=== PATIENT | female | born 1980 | race Caucasian/White ===

== ENCOUNTER → 2017-09-13 15:28 | Outpatient (CLI) | payer OTHER, SELFPAY ==
[2017-09-13 15:28] VITALS: BP 124/87; BMI 38.6
[2017-09-13 17:03] LABS: Absolute Lymphocyte Count 1.51 X10^3/ul (0.83-4.51); Absolute Neutrophil Count 5.9 X10^3/uL (2.0-7.7); Basophil# 0.01 X10^3/uL; Basophil% 0.1 % (0-1); Eosinophil# 0.05 X10^3/uL; Eosinophils% 0.6 % (0-5); Hematocrit 34.6 % (37-47); Hemoglobin 11.7 g/dl (12.0-15.0); Lymphocyte # 1.51 X10^3/ul (4.0); Lymphocyte % 18.9 % (19-41); Mean Corp Hgb Conc 33.8 g/gl (32-36); Mean Corpuscular Hgb 28.1 pg (27.0-32.0); Mean Corpuscular Volume 83.2 fL (81-99); Mean Platelet Vol. 9.8 fl (6.2-12.0); Monocyte# 0.52 X10^3/uL; Monocyte% 6.5 % (0-10); Neutrophil # 5.89 X10^3/uL (2.7-7.7); Neutrophil % 73.6 % (47-70); Platelet Count 213 K/mm3 (150-450); RBC Distribution Width CV 15.7 % (11.6-14.6); RBC Distribution Width SD 46.6 fl (35.1-43.9); Red Blood Count 4.16 M/mm3 (4.2-5.4)
[2017-09-13 17:05] LABS: POSITIVE COUNT NO; POSITIVE DIFFERENTIAL NO; POSITIVE MORPHOLOGY NO
== END ==
PROVIDERS: Family Provider Nurse Practitioner; PCP Nurse Practitioner; Visit Provider Obstetrics & Gynecology
DX: O24.414 Gestational diabetes mellitus in pregnancy, insulin controlled (principal); Z3A.00 Weeks of gestation of pregnancy not specified
CPT/HCPCS: 36415; 85025; 86850; 86900

== ENCOUNTER → 2017-10-02 16:30 | Outpatient (CLI) | payer OTHER, SELFPAY ==
[2017-10-02 17:19] LABS: Hemoglobin A1c 4.9 % (4.2-6.3)
[2017-10-02 17:23] LABS: Free T3 2.8 pg/mL (2.18-3.98); T4 Free Direct 0.75 ng/dL (0.76-1.46); Thyroid Stim Hormone (TSH) 2.31 uIU/mL (0.358-3.74)
[2017-10-06 08:30] LABS: PARVOVIRUS B19 IGG 7.4 index (0.0-0.8); PARVOVIRUS B19 IGM 0.2 index (0.0-0.8)
== END ==
PROVIDERS: Nurse Practitioner; Family Provider Nurse Practitioner; PCP Nurse Practitioner; Visit Provider Obstetrics & Gynecology
DX: O24.419 Gestational diabetes mellitus in pregnancy, unspecified control (principal); Z3A.00 Weeks of gestation of pregnancy not specified
CPT/HCPCS: 83036; 84439; 84443; 84481; 86747

== ENCOUNTER → 2017-10-05 12:29 | Outpatient (CLI) | payer OTHER, SELFPAY ==
--- NOTE | 2017-10-05 12:31 | US_ITS ---
STUDY: SECOND AND THIRD TRIMESTER OBSTETRICAL ULTRASOUND - LIMITED REASON FOR EXAM: Female, 37 years old. Routine survey. LMP: March 01, 2017. PRIOR ULTRASOUND: None. TECHNIQUE: Transabdominal ultrasound evaluation was performed. FINDINGS: There is a single intrauterine fetus. The fetus is in a footling breech presentation. There is demonstrated cardiac activity with a heart rate of 144 bpm. There is a normal amniotic fluid volume. The largest amniotic fluid pocket measures 8.8 cm x 6.6 cm. The amniotic fluid index (OLE) is 12.5 cm. The placenta is anterior in location and is not low lying. There are Grade 0 placental changes. The cervix measures 3.7 cm in length. BIOMETRY: BPD: 7.73 cm: 31 weeks, 1 days HC: 29.54 cm: 32 weeks, 5 days AC: 28.26 cm: 32 weeks, 3 days FL: 6.28 cm: 30 weeks, 4 days Age by LMP: 31 weeks, 1 days. JAIME by LMP: December 06, 2017. age by current US: 32 weeks, 2 days. JAIME by current US: November 28, 2017. Estimated weight: 1940 grams, +/- 23 grams, 76 percentile. Gender: Indeterminant US/OB Limited With Biometrics IMPRESSION: Single live intrauterine gestation with a mean gestational age of 32 weeks and 2 days. Electronically Signed: Nathan Nam MD at 14:32 EST Tel [phone], Service support ,
== END ==
PROVIDERS: Family Provider Nurse Practitioner; PCP Nurse Practitioner; Visit Provider Obstetrics & Gynecology
DX: O24.414 Gestational diabetes mellitus in pregnancy, insulin controlled (principal); O32.8XX0 Maternal care for other malpresentation of fetus, not applicable or unspecified; Z3A.32 32 weeks gestation of pregnancy
CPT/HCPCS: 76816

== ENCOUNTER → 2017-11-06 15:02 | Outpatient (CLI) | payer OTHER, SELFPAY ==
--- NOTE | 2017-11-06 15:04 | US_ITS ---
STUDY: SECOND AND THIRD TRIMESTER OBSTETRICAL ULTRASOUND - LIMITED REASON FOR EXAM: Female, 37 years old. Growth. Gestational diabetes LMP: 03/01/2017 PRIOR ULTRASOUND: 10/05/2017 TECHNIQUE: Transabdominal ultrasound evaluation was performed. FINDINGS: There is a single intrauterine fetus. The fetus is in a cephalic presentation. There is demonstrated cardiac activity with a heart rate of 143 bpm. There is a normal amniotic fluid volume. The largest amniotic fluid pocket measures 6.9 x 4.8 cm. The amniotic fluid index (OLE) is 10.3 cm. The placenta is anterior in location and is not low lying. There are Grade 1 placental changes. The cervix is obscured. BIOMETRY: BPD: 8.6 cm: 34 weeks, 4 days HC: 31.9 cm: 36 weeks, 0 days AC: 33.2 cm: 37 weeks, 2 days FL: 7.1 cm: 36 weeks, 3 days Age by LMP: 35 weeks, 5 days. JAIME by LMP: 12/06/2017. age by prior US: 36 weeks, 6 days. JAIME by prior US: 11/28/2017. age by current US: 36 weeks, 1 days. JAIME by current US: 12/03/2017. Estimated weight: 2954 grams, +/- 431 grams, 72 percentile. Gender: Indeterminant US/OB Limited With Biometrics IMPRESSION: 1. Single live intrauterine in vertex presentation 36 week 1 day gestation with an JAIME of 12/03/2017 and gestational age by prior ultrasound and LMP as above. 2. Anterior grade 1 placenta, not low lying. 3. Amniotic fluid index 10.3 cm. 4. Estimated weight 2954 g or 72 percentile. 5. Cervix is obscured. Electronically Signed: Marika Stoddard MD at 5:07 EDT , Service support ,
== END ==
PROVIDERS: Family Provider Nurse Practitioner; PCP Nurse Practitioner; Visit Provider Obstetrics & Gynecology
DX: O24.414 Gestational diabetes mellitus in pregnancy, insulin controlled (principal); Z3A.00 Weeks of gestation of pregnancy not specified
CPT/HCPCS: 76816

== ENCOUNTER 2017-11-24 04:39 | Inpatient (IN) | payer OTHER, SELFPAY ==
[2017-11-24 05:38] VITALS: BMI 39.5
[2017-11-24 05:40] LABS: Hematocrit 36.1 % (37-47); Mean Corp Hgb Conc 33.2 g/gl (32-36); Mean Corpuscular Hgb 27.5 pg (27.0-32.0); Mean Corpuscular Volume 82.6 fL (81-99); Mean Platelet Vol. 9.4 fl (6.2-12.0); Platelet Count 160 K/mm3 (150-450); RBC Distribution Width CV 16.5 % (11.6-14.6); RBC Distribution Width SD 49.8 fl (35.1-43.9); Red Blood Count 4.37 M/mm3 (4.2-5.4); White Blood Count 7.7 K/mm3 (4.4-11.0)
[2017-11-24 05:46] LABS: Bedside Glucose 97 mg/dL (70-110)
[2017-11-24] MEDS: Lactated Ringers 1,000 ML 50 ML IV ×2 (06:00→07:28)
[2017-11-24 06:04] LABS: Scan Indicated on CBC? Y/N NO
--- NOTE | 2017-11-24 07:22 | HP.PCM_ITS ---
- Problem List (1) History of GBS (group B streptococcus) UTI, currently Status: Acute Comment: per patient, pcn in labor (2) Supervision of high-risk of elderly multigravida Status: Acute Comment: PRR JAIME 12/06/17 girl Kathryn Crews DAVON [facility] (3) Rh negative status during Status: Acute Qualifiers: Comment: rhogam prn and 28 weeks (4) Hypothyroidism Status: Acute Qualifiers: Comment: tsh q trimester (5) Insulin controlled gestational diabetes mellitus (GDM) in third trimester Status: Acute Comment: 28 U insulin at bedtime, sees endocrine, recommend weekly nsts at 32 weeks and growth US every 4 weeks, IOL 39 weeks History Date of Admission: 11/24/17 Final JAIME: 12/06/17 Gestational age: 38 Weeks and 2 Days History of this : 37 yo @ 38w3d presents IAL with clear SROM. she has had gestational diabetes controlled with insulin and diet. she dneies any vb, co ctx every 10 minutes Pertinent Past Medical History: Past Medical History (Last Reviewed 11/22/17 @ 14:20 by Karen Nicole) Gestational diabetes (Acute) Hypothyroid (Acute) Rh negative status during (Acute) Past Surgical History (Last Reviewed 11/22/17 @ 14:20 by Karen Nicole) H/O eye surgery (Acute) Mom's Labs & Results 11/24/17 11/24/17 11/24/17 05:22 05:30 05:30 WBC 7.7 RBC 4.37 Hgb 12.0 Hct 36.1 L MCV 82.6 MCH 27.5 MCHC 33.2 RDW 16.5 H RDW Differential 49.8 H Plt Count 160 MPV 9.4 POC Glucose 97 Blood Type O NEGATIVE Antibody Screen NEGATIVE Course Did the patient receive Yes care? Labs Blood Type: O RH: NEGATIVE RPR/VDRL/Syphilis Nonreactive Rubella status Immune HbSAg Negative Date Done: 06/15/17 Chlamydia Negative Gonorrhea Negative HIV/AIDS Non-Reactive Group B Strep: Positive Current Obstetrical History Gestational Diabetes Yes Incompetent Cervix No Infertility No IUGR No Macrosomia No Hypertension/Pre-eclampsia No Placenta Previa/Abruption No PTL/PROM No Uterine anomaly No Oligohydramnios No Polyhydramnios No Multiple gestation No Past Medical History Asthma No Diabetes No Hypertension No Heart disease No Mitral valve prolapse No Neurologic/Seizure disorder/ No Migraines Kidney disease No Liver disease No Varicosities No Clotting disorders/Hx of DVT No Thyroid Dysfunction Yes: hypothyroidism Other medical diseases No Psychiatric disorders No Major trauma No Abnormal PAP smear No Sleep apnea No Mammogram in the last 2 years No Social History Marital Status: Alleged father Michael Hx Smoking No Smoking Status Never smoker All Active Problems (Last Reviewed 11/22/17 @ 14:20 by Karen Nicole) History of GBS (group B streptococcus) UTI, currently (Acute) Supervision of high-risk of elderly multigravida (Acute) Rh negative status during (Acute) Hypothyroidism (Acute) Insulin controlled gestational diabetes mellitus (GDM) in third trimester (Acute ) Allergies No Known Allergies Allergy (Verified 11/24/17 05:41) Current Medications Acetaminophen (Tylenol) 325 - 650 mg PO Q4H PRN PRN PRN Reason: PAIN OR FEVER >100.4F Al Hydroxide/Mg Hydroxide (Mylanta Ii) 15 - 30 ml PO Q4H PRN PRN PRN Reason: INDIGESTION Citric Acid/Sodium Citrate (Bicitra) 30 ml PO UD PRN Penicillin G Potassium/Dextrose (Penicillin G Potassium) 3 mu in 50 mls @ 100 mls/hr IV Q4H MELITA Lactated Ringer's () 1,000 mls @ 50 mls/hr IV .Q20H MELITA Nalbuphine HCl (Nubain) 5 - 10 mg IV Q3H PRN PRN PRN Reason: PAIN (4-10/10) Ondansetron HCl (Zofran) 4 mg IV Q8H PRN PRN PRN Reason: NAUSEA Promethazine HCl (Phenergan) 6.25 - 12.5 mg IV Q4H PRN PRN; Protocol PRN Reason: IF NAUSEA PERSISTS Sodium Chloride () 5 - 15 ml IV UD MELITA Number of Fetus(es): 1 - fht 140-150 moderate variability reactive no decels, cat I tracing toco q 8-10 Review of Systems Constitutional: Denies: Chills, Fever, Weight Change HEENT: Denies: Head Aches, Sinus Congestion, Sinus Drainage Cardiovascular: Denies: Chest Pain, Palpitations Respiratory: Denies: Cough, Shortness of breath at rest, Sputum production Gastrointestinal: Reports: Abdominal Pain. Denies: Nausea, Vomiting Genitourinary: Denies: Dysuria Gynecological: Reports: Vaginal discharge. Denies: Vaginal bleeding Musculoskeletal: Denies: Joint Pain, Joint Tenderness Skin: Denies: Rash, Wounds Neurological: Denies: Numbness, Tingling, Focal weakness Psychiatric: Denies: Anxiety, Depression, Homicidal Ideations, Suicidal Ideations Hematologic/ Lymphatic: Denies: Easy Bruising, Easy Bleeding Physical Exam General: Alert Cardiovascular: Regular rate Lungs: Normal air movement Abdomen: Soft, Non Tender, Gravid Extremities:: No edema Estimated gestational size: Appropriate for gestational size Presentation: Cephalic Cervix Dilation (cm): 4 Station: -2 Effacement (%): 60 Assessment/Plan 37 yo @ 38w3d presents IAL srom clear fluid 1. GDMA2- check blood sugars q1 hour in labor 2. srom clear fluid 3. gbs pos give pcn 4. epi PRN 5. AMA
[2017-11-24 07:31] LABS: Bedside Glucose 94 mg/dL (70-110)
[2017-11-24 07:51] LABS: ALB/GLOB Ratio 0.7 RATIO (0.9-2.4); AST(SGOT) 14 U/L (15-37); Alanine Aminotransfer ALT/SGPT 15 U/L (13-56); Albumin, Serum 2.6 g/dL (3.2-5.0); Alkaline Phosphatase 113 U/L (45-117); Anion Gap 10 (5-15); BUN 6 mg/dL (7-18); BUN/Creat Ratio 10.1 RATIO (10-20); Calcium,Total 8.8 mg/dL (8.5-10.1); Chloride 110 mmol/L (98-107); Creatinine, Serum 0.59 mg/dL (0.55-1.02); EST Glomerular Filtration Rate 120 mL/min (>60); Est Glom Filt Rate - Afr Amer 145 mL/min (>60); Estimated Creatinine Clearance 102.25 ml/min; Globulin 3.8 g/dL (2.2-4.2); Glucose 90 mg/dL (74-106); Potassium 3.8 mmol/L (3.5-5.1); Protein, Total 6.4 g/dL (6.4-8.2); Sodium Level 142 mmol/L (136-145)
[2017-11-24] MEDS: Oxytocin 30 units/NS 500 ml 30 UNITS/500 ML IV.SOLN IV (09:22)
[2017-11-24 10:06] LABS: Bedside Glucose 73 mg/dL (70-110)
[2017-11-24] MEDS: Oxytocin 30 units/NS 500 ml 30 UNITS/500 ML IV.SOLN 334 UNITS IV (11:25)
--- NOTE | 2017-11-24 11:34 | PCM.OB.VAG ---
- Problem List (1) History of GBS (group B streptococcus) UTI, currently Status: Acute Comment: per patient, pcn in labor (2) Supervision of high-risk of elderly multigravida Status: Acute Comment: PRR JAIME 12/06/17 [facility] (3) Rh negative status during Status: Acute Qualifiers: Comment: rhogam prn and 28 weeks (4) Hypothyroidism Status: Acute Qualifiers: Comment: tsh q trimester (5) Insulin controlled gestational diabetes mellitus (GDM) in third trimester Status: Acute Comment: 28 U insulin at bedtime, sees endocrine, recommend weekly nsts at 32 weeks and growth US every 4 weeks, IOL 39 weeks Vaginal Delivery Maternal Presentation: Active Labor, Spontaneous Rupture of Membranes 38w2 d rpesents IAL SROM Medical Reason for Induction: - - diabetes Amniotic Membrane Rupture Type: Spontaneous at home Amniotic Fluid Description: Clear Final JAIME: 12/06/17 Gestational age: 38 Weeks and 2 Days Date of Procedure: 11/24/17 Pre-Operative Diagnosis: ial Post-Operative Diagnosis: same Surgery/ Procedure Performed: Spontaneous Vaginal Delivery Type of Anesthesia: Epidural Description of Procedure: Patient began pushing and delivered the head in the KAILA presentation. The head was delivered atraumatically . The anterior and posterior shoulders delivered without complication followed by the rest of the infant and the infant was placed on the maternal abdomen. Delayed cord clamping was employed for approximately 60 seconds. Cord was clamped and cut and gentle traction was applied to the cord and the placenta delivered spontaneously immediately following it was noted to be intact with three-vessel cord. The perineum and vagina were inspected and noted to have no laceration. EBL was 200 cc. Patient and tolerated delivery well. Presentation: KAILA Placental Delivery Description: Spontaneous Placenta Disposition: [facility] Cord Vessel Description: 3 Vessels Cord Entanglement: None Estimated Blood Loss: 200 Infant A gender: Female Episiotomy Description: None Laceration: None Medications given after delivery: IV Pitocin Complications: None
[2017-11-24] MEDS: Oxytocin 30 units/NS 500 ml 30 UNITS/500 ML IV.SOLN 167 UNITS IV (11:55)
[2017-11-24] MEDS: Naproxen 250 MG Tablet PO (13:05)
[2017-11-24 14:35] VITALS: BP 131/80; PULSE 91; RESP 18; TEMP 37
[2017-11-24] MEDS: Acetaminophen 500 MG Tablet 1000 MG PO (14:49)
[2017-11-24 17:45] VITALS: BP 105/72; PULSE 92; RESP 16; TEMP 36.8
[2017-11-24 19:40] VITALS: BP 105/78; PULSE 97; RESP 18; TEMP 36.7; O2SAT 100
[2017-11-25 00:35] VITALS: BP 107/83; PULSE 92; RESP 16; TEMP 36.9
[2017-11-25] MEDS: Acetaminophen 500 MG Tablet 1000 MG PO (00:37)
[2017-11-25 03:50] VITALS: BP 103/79; PULSE 89; RESP 16; TEMP 37.3
[2017-11-25] MEDS: Naproxen 250 MG Tablet PO (04:10)
[2017-11-25] MEDS: Thyroid 60 MG Tablet PO (06:25)
[2017-11-25 07:45] VITALS: BP 133/84; PULSE 87; RESP 18; TEMP 36.9; O2SAT 98
--- NOTE | 2017-11-25 10:59 | PCM.PN.OB ---
Subjective: doingw ell no complaints - Physical Exam General: Alert HEENT: EOMI Vital Signs Temp Pulse Resp BP Pulse Ox 98.4 F 87 18 133/84 H 98 11/25/17 07:45 11/25/17 07:45 11/25/17 07:45 11/25/17 07:45 11/25/17 07:45 Oxygen Delivery Method Room Air Weight: 216 lb 3.2 oz Body Mass Index (BMI) 39.5 Intake and Output for Last 24 Hours 11/23/17 11/24/17 11/25/17 23:59 23:59 23:59 Intake Total 2200 / 2200 Output Total 800 / 800 Balance 1400 / 1400 Medical Necessity - Tobacco Use Smoking Status: Never smoker Assessment/Plan s/p routine care diabetes- recommend checking BS at home and 2 hour GTT 6 weeks pp dc home
--- NOTE | 2017-11-25 11:09 | DCINST_ITS ---
Discharge Diet: No Restrictions Discharge Activity: Return to Normal Activity, May not drive while taking narcotic pain medications., May Shower May resume sexual activity in: 4-6 weeks Call your doctor if your incision/area has: Continuous Slow Oozing, Sudden Increased Bleeding, Increased Pain/ Swelling, Increased Redness, Foul Smelling Discharge Additional Instructions: If you experience any of the following, contact your healthcare provider. * Bleeding that soaks a pad every hour for 2 hours * Fever 100.4 or higher * Unrelieved incision or abdominal pain * Swelling, redness, discharge or bleeding from your incision or episiotomy site * Your incision begins to separate * Problems urinating (including inability to urinate or burning while urinating) . * Visual changes * Severe headache * Flu-like symptoms * Pain or redness in one of both of your breasts * Pain, warmth, tenderness or swelling in your legs, especially the calf area * Frequent nausea and vomiting * Symptoms of depression or anxiety If you experience any of the following, call 911 or go to the nearest Emergency Room. * Chest pain * Problems breathing * Seizure activity * Partial or complete paralysis of a body part, slurred speech, weakness or drooping of the face, or a sudden inability to walk or hold your balance Allergies/Adverse Reactions: Allergies No Known Allergies Allergy (Verified 11/24/17 05:41) Medications to take at Discharge docosahexanoic acid 200 mg capsule mg PO 08/31/17 insulin NPH isophane U-100 human 100 unit/mL (3 mL) subcutaneous pen 5 unit SC QPM #15 ml 09/12/17 thyroid (pork) 60 mg tablet 60 mg PO QDAY 10/25/17 Naproxen [Naprosyn] 250 - 500 mg PO Q8H PRN PRN #30 tab 11/25/17 The following prescriptions were given: Naproxen [Naprosyn] 250 - 500 mg PO Q8H PRN PRN #30 tab PRN Reason: MILD PAIN Orders to be completed after discharge: Electric breast pump Location: None Selected Please Follow Up With: Sarah Cam MD - [phone] When: Call to make an appointment with your doctor in 6 weeks. If you had elevated Blood pressure or 4th degree laceration you will need to be seen in 2 weeks. Primary Care Physician: Bush,Nuvia, PREPRINT ANALYST-C [Primary Care Provider] -
[2017-11-25 12:15] VITALS: BP 129/85; PULSE 98; RESP 16; TEMP 36.5; O2SAT 96
--- NOTE | 2017-11-25 15:36 | NURSING ---
1420 baby and mom discharged to home. baby in carseat and mom in wheelchair taken out to car accompanied by .
== END 2017-11-25 14:25 | disposition home or self-care (01) | DRG 775 ==
PROVIDERS: Admitting Provider Obstetrics & Gynecology; Family Provider Nurse Practitioner; PCP Nurse Practitioner; Visit Provider Obstetrics & Gynecology
DX: O24.424 Gestational diabetes mellitus in childbirth, insulin controlled (principal); O99.284 Endocrine, nutritional and metabolic diseases complicating childbirth; E03.9 Hypothyroidism, unspecified; Z37.0 Single live birth; Z3A.38 38 weeks gestation of pregnancy
CPT/HCPCS: 59025; 59050; 80053; 82962; 85027; 86850; 86900; 99218; J7120; G0378

== ENCOUNTER → 2018-11-21 | Outpatient (CLI) | payer OTHER, SELFPAY ==
[2018-10-08 18:04] VITALS: BMI 38.2
[2018-11-21 23:23] LABS: Thyroid Stim Hormone (TSH) 0.89 uIU/mL (0.358-3.74)
== END | disposition home or self-care (01) ==
PROVIDERS: Family Provider Nurse Practitioner; PCP Nurse Practitioner; Visit Provider Nurse Practitioner
DX: E03.9 Hypothyroidism, unspecified (principal)
CPT/HCPCS: 84443

== ENCOUNTER → 2019-09-29 14:26 | Outpatient (CLI) | payer OTHER, SELFPAY ==
[2018-11-29 15:39] VITALS: BMI 36.3
[2019-09-29 14:24] VITALS: BMI 36.3
--- NOTE | 2019-09-29 14:28 | US_ITS ---
STUDY: ULTRASOUND OF THE FEMALE PELVIS - COMPLETE REASON FOR EXAM: Female, 39 years old. Pelvic pain. TECHNIQUE: Transabdominal and Transvaginal TECHNICAL QUALITY: Adequate. COMPARISON: None. FINDINGS: The uterus is anteverted and is in a midline position. The uterus measures 7.7 x 5.9 x 4.9 cm. Normal uterine cervix. The endometrium measures 7 mm in thickness, and is hyperechoic. There is no demonstrated endometrial mass. There is no demonstrated myometrial mass. The right ovary is visualized. The right ovary measures 2.7 x 2.7 x 1.6 cm. There is no right ovarian cyst or ovarian mass. There is no visualized right adnexal mass or complex lesion. There is normal arterial and normal venous vascularity. The left ovary is visualized. The left ovary measures 1.9 x 1.4 x 1.3 cm. There is no left ovarian cyst or ovarian mass. There is no visualized left adnexal mass or complex lesion. There is normal arterial and normal venous vascularity. There is no fluid in the cul-de-sac. US/Transvaginal Non- IMPRESSION: Normal female pelvis. Electronically Signed: Kahlil Valenzuela, at 17:00 EST Tel , Service support ,
--- NOTE | 2019-09-29 14:28 | US_ITS ---
STUDY: ULTRASOUND OF THE FEMALE PELVIS - COMPLETE REASON FOR EXAM: Female, 39 years old. Pelvic pain. TECHNIQUE: Transabdominal and Transvaginal TECHNICAL QUALITY: Adequate. COMPARISON: None. FINDINGS: The uterus is anteverted and is in a midline position. The uterus measures 7.7 x 5.9 x 4.9 cm. Normal uterine cervix. The endometrium measures 7 mm in thickness, and is hyperechoic. There is no demonstrated endometrial mass. There is no demonstrated myometrial mass. The right ovary is visualized. The right ovary measures 2.7 x 2.7 x 1.6 cm. There is no right ovarian cyst or ovarian mass. There is no visualized right adnexal mass or complex lesion. There is normal arterial and normal venous vascularity. The left ovary is visualized. The left ovary measures 1.9 x 1.4 x 1.3 cm. There is no left ovarian cyst or ovarian mass. There is no visualized left adnexal mass or complex lesion. There is normal arterial and normal venous vascularity. There is no fluid in the cul-de-sac. US/Pelvic (Non ) IMPRESSION: Normal female pelvis. Electronically Signed: Kahlil Valenzuela, at 16:59 EST Tel , Service support ,
== END ==
PROVIDERS: PCP Nurse Practitioner; Referring Provider Obstetrics & Gynecology; Visit Provider Obstetrics & Gynecology
DX: R10.2 Pelvic and perineal pain (principal)
CPT/HCPCS: 76830; 76856; 93976

== ENCOUNTER 2020-08-26 13:07 | Outpatient (RCR) | payer OTHER, SELFPAY ==
[2020-08-03 16:46] VITALS: BMI 41.8
== END 2020-08-26 23:59 ==
LOC: IMMUN 13:07
PROVIDERS: PCP Nurse Practitioner; Visit Provider Family Medicine
DX: Z23 Encounter for immunization (principal)
CPT/HCPCS: 0011A; 0012A; 91301

== ENCOUNTER → 2020-09-15 22:12 | Outpatient (CLI) | payer OTHER, SELFPAY ==
[2020-08-03 16:46] VITALS: BMI 41.8
[2020-09-15 23:03] LABS: AST(SGOT) 14 U/L (15-37); Alanine Aminotransfer ALT/SGPT 31 U/L (13-56); Alkaline Phosphatase 67 U/L (45-117); Anion Gap 6 (5-15); BUN 12 mg/dL (7-18); BUN/Creat Ratio 15.4 RATIO (10-20); Calcium,Total 8.9 mg/dL (8.5-10.1); Chloride 105 mmol/L (98-107); Creatinine, Serum 0.78 mg/dL (0.55-1.02); EST Glomerular Filtration Rate 86 mL/min (>60); Est Glom Filt Rate - Afr Amer 105 mL/min (>60); Globulin 4.1 g/dL (2.2-4.2); Glucose 115 mg/dL (74-106); Potassium 3.6 mmol/L (3.5-5.1); Protein, Total 8.1 g/dL (6.4-8.2); Sodium Level 139 mmol/L (136-145); Thyroid Stim Hormone (TSH) 1.84 uIU/mL (0.358-3.74)
== END ==
PROVIDERS: Visit Provider Nurse Practitioner
DX: E03.9 Hypothyroidism, unspecified (principal)
CPT/HCPCS: 80053; 84443

== ENCOUNTER → 2021-11-30 | Outpatient (CLI) | payer OTHER, SELFPAY ==
[2021-11-30 22:25] LABS: Thyroid Stim Hormone (TSH) 2.74 uIU/mL (0.358-3.74)
== END | disposition home or self-care (01) ==
PROVIDERS: Referring Provider Nurse Practitioner; Visit Provider Nurse Practitioner
DX: E03.9 Hypothyroidism, unspecified (principal)
CPT/HCPCS: 84443

== ENCOUNTER → 2024-10-03 | Outpatient (CLI) | payer OTHER, SELFPAY ==
[2024-10-03 22:09] LABS: Absolute Lymphocyte Count 1.36 X10^3/uL (0.83-4.51); Absolute Neutrophil Count 3.8 X10^3/uL (2.0-7.7); Basophil# 0.03 X10^3/uL; Basophil% 0.5 % (0-1); Eosinophil# 0.05 X10^3/uL; Eosinophils% 0.9 % (0-5); Hematocrit 34.6 % (37-47); Hemoglobin 11.1 g/dL (12.0-15.0); Lymphocyte # 1.36 X10^3/ul (0.83-4.51); Lymphocyte % 24.2 % (19-41); Mean Corp Hgb Conc 32.1 g/dL (32-36); Mean Corpuscular Hgb 25.6 pg (27.0-32.0); Mean Corpuscular Volume 79.9 fL (81-99); Mean Platelet Vol. 10.1 fl (6.2-12.0); Monocyte# 0.37 X10^3/uL; Monocyte% 6.6 % (0-10); NRBC Flagged by Analyzer 0 % (0-5); Neutrophil # 3.81 X10^3/uL (2.7-7.7); Neutrophil % 67.6 % (47-70); Platelet Count 311 K/mm3 (150-450); RBC Distribution Width CV 14.6 % (11.6-14.6); RBC Distribution Width SD 42.5 fl (35.1-43.9); Red Blood Count 4.33 M/mm3 (4.2-5.4); White Blood Count 5.6 K/mm3 (4.4-11.0)
[2024-10-04 00:40] LABS: ALB/GLOB Ratio 1.3 RATIO (0.9-2.4); AST(SGOT) 26 U/L (<=31); Alanine Aminotransfer ALT/SGPT 36 U/L (<=34); Albumin, Serum 4.2 g/dL (3.5-5.0); Alkaline Phosphatase 76 U/L (35-104); Anion Gap 10 (5-15); BUN 26 mg/dL (4-19); BUN/Creat Ratio 37.3 RATIO (10-20); Carbon Dioxide 25.1 mmol/L (22.0-29.0); Chloride 104 mmol/L (96-108); Cholesterol 122 mg/dL (<=200); Creatinine, Serum 0.71 mg/dL (0.70-1.20); EST Glomerular Filtration Rate 108 (>60); Globulin 3.2 g/dL (2.2-4.2); Glucose 90 mg/dL (70-99); High Density Lipoprotein 60 mg/dL; Low Density Lipoprotein Calc. 46 mg/dL; Potassium 4.4 mmol/L (3.3-5.1); Protein, Total 7.4 g/dL (5.9-8.4); Sodium Level 139 mmol/L (133-145); Total Bilirubin 0.28 mg/dL (0.00-1.30); Triglycerides 78 mg/dL; Very Low Density Lipoprotein 16 mg/dL (5-40); cholesterol:hdl ratio screen 2.02
== END | disposition home or self-care (01) ==
PROVIDERS: PCP Nurse Practitioner; Referring Provider Nurse Practitioner; Visit Provider Nurse Practitioner
DX: Z00.00 Encounter for general adult medical examination without abnormal findings (principal)
CPT/HCPCS: 80053; 80061; 84443; 85025